=== PATIENT | female | born 1970 | race Caucasian/White ===

== ENCOUNTER 2024-02-05 14:05 | Emergency (ER) | payer OTHER ==
[~2024-02-05] VITALS: Ht 162.6 cm; Wt 49.9 kg
[2024-02-05 14:12] VITALS: O2SAT 99
[2024-02-06] MEDS ORDERED: LORA0.5T48 PO (16:25)
== END 2024-02-05 14:44 | disposition left against medical advice (07) ==
LOC: ER 14:05
DX: F99 Mental disorder, not otherwise specified (principal); Z76.0 Encounter for issue of repeat prescription; Z79.899 Other long term (current) drug therapy; Z88.1 Allergy status to other antibiotic agents
CPT/HCPCS: A4606; A4663

== ENCOUNTER 2024-02-05 22:46 | Emergency (ER) | payer OTHER ==
[~2024-02-05] VITALS: Ht 162.6 cm; Wt 49.9 kg
[2024-02-05 22:51] VITALS: O2SAT 100
[2024-02-06] MEDS ORDERED: LORA0.5T48 PO (16:25)
== END 2024-02-05 23:16 | disposition left against medical advice (07) ==
LOC: ER 22:48
DX: Z00.8 Encounter for other general examination (principal); Z53.21 Procedure and treatment not carried out due to patient leaving prior to being seen by health care provider; Z59.00 Homelessness unspecified; Z88.1 Allergy status to other antibiotic agents
CPT/HCPCS: A4606; A4663

== ENCOUNTER 2024-02-06 09:15 | Emergency (ER) | payer OTHER ==
[~2024-02-06] VITALS: Ht 162.6 cm; Wt 49.9 kg
[2024-02-06 11:08] LABS: BASOPHILS % (AUTO) 0.7 % (0.0-2.0); EOSINOPHILS # (AUTO) 0.1 K/uL (0.0-0.7); EOSINOPHILS % (AUTO) 1.5 % (0.0-7.0); HEMATOCRIT 43.8 % (31.2-41.9); HEMOGLOBIN 14.1 g/dL (10.9-14.3); LYMPHOCYTES # (AUTO) 1.4 K/uL (0.8-4.8); LYMPHOCYTES % (AUTO) 25.2 % (20.5-51.5); MEAN CORPUSCULAR HEMOGLOBIN 27.7 uug (24.7-32.8); MEAN CORPUSCULAR HGB CONC 32 g/dL (32.3-35.6); MEAN CORPUSCULAR VOLUME 86.4 fL (75.5-95.3); MONOCYTES # (AUTO) 0.2 K/uL (0.1-1.30); MONOCYTES % (AUTO) 2.6 % (0.0-11.0); PLATELET COUNT (AUTO) 304 K/uL (179-408); RED BLOOD CELL COUNT(AUTO) 5.08 MIL/uL (3.63-4.92); RED CELL DISTRIBUTION WIDTH 13.9 % (12.3-17.7); WHITE BLOOD COUNT (AUTO) 5.7 K/uL (3.8-11.8)
[2024-02-06 11:27] LABS: ETHANOL < 3 MG/DL (0-10)
[2024-02-06 11:31] LABS: BILIRUBIN,TOTAL 0.8 mg/dL (0.2-1.0); CALCIUM 9.5 mg/dL (8.5-10.1); CREATININE 1.1 mg/dL (0.6-1.3); POTASSIUM 3.4 mmol/L (3.5-5.1)
[2024-02-06 11:32] LABS: ALBUMIN 4.1 g/dL (3.4-5.0); TOTAL PROTEIN, SERUM 7.6 g/dL (6.4-8.2)
[2024-02-06] MEDS: IV NORMAL SALINE 1000 ML BAG IV ONE (12:05)
[2024-02-06] MEDS ORDERED: LORAZEPAM 2 MG/1 ML VIAL ONE (13:15)
[2024-02-06] MEDS: LORAZEPAM 2 MG/1 ML VIAL IV ONE (13:20)
[2024-02-06] MEDS ORDERED: LORA0.5T48 PO (16:25)
[2024-02-06 17:11] VITALS: BP 121/87; TEMP 97.1; O2SAT 97
== END 2024-02-06 16:17 | disposition home or self-care (01) ==
LOC: ER 09:15
DX: F91.9 Conduct disorder, unspecified (principal); G89.4 Chronic pain syndrome; Z79.899 Other long term (current) drug therapy; Z59.00 Homelessness unspecified; Z88.1 Allergy status to other antibiotic agents
CPT/HCPCS: 80053; 85025; 36415; 99285; 96361; 96374; 80320; J2060; J7040 ×2; A4606; A4663; G0480